=== PATIENT | female | born 1945 | race Caucasian/White ===

== ENCOUNTER 2022-06-24 11:10 | Outpatient (CLI) | payer MEDICARE, SELFPAY | END 2022-06-24 11:11 | disposition home or self-care (01) | PROVIDERS: PCP Specialist; Visit Provider Specialist | DX: C44.319 Basal cell carcinoma of skin of other parts of face (principal) | CPT/HCPCS: 88305 ==

== ENCOUNTER 2023-09-07 08:57 | Outpatient (RCR) | payer MEDICARE, MEDICAID, SELFPAY | END 2023-12-06 23:59 | disposition home or self-care (01) | LOC: CHSAUDIO 08:57 | DX: Z46.1 Encounter for fitting and adjustment of hearing aid (principal) | CPT/HCPCS: 92593 ==

== ENCOUNTER 2025-03-07 15:06 | Outpatient (RCR) | payer SELFPAY | END 2025-03-07 23:59 | disposition home or self-care (01) | LOC: ANHAUDIO 15:06 | PROVIDERS: Visit Provider Family Medicine | DX: Z46.1 Encounter for fitting and adjustment of hearing aid (principal) | CPT/HCPCS: 92592 ==

== ENCOUNTER 2025-03-24 08:50 | Outpatient (CLI) | payer MEDICARE, SELFPAY | END 2025-03-24 08:51 | disposition home or self-care (01) | PROVIDERS: Visit Provider Family Medicine | DX: H90.3 Sensorineural hearing loss, bilateral (principal); H93.13 Tinnitus, bilateral; H74.8X1 Other specified disorders of right middle ear and mastoid; Z82.2 Family history of deafness and hearing loss; Z97.4 Presence of external hearing-aid | CPT/HCPCS: 92557; 92567; 99199 ==